=== PATIENT | female | born 1930 | race Hispanic/Latino ===

== ENCOUNTER 2018-05-31 17:58 | Emergency (ER) | payer MEDICARE ==
[2018-05-31 18:04] VITALS: TEMP 97.4
[2018-05-31] MEDS ORDERED: Sodium Chloride 0.9% 1,000 ML IV STA (19:09)
[2018-05-31 19:34] LABS: VENOUS BLOOD GAS BASE EXCESS 4.7 mmol/L (0.0-2.0); VENOUS BLOOD GAS PCO2 58 mmHg (40-60); VENOUS BLOOD GAS PO2 25 mm/Hg (30-55); VENOUS BLOOD PH 7.35 (7.32-7.43)
[2018-05-31 19:54] LABS: BASO # 0.1 K/uL (0.0-0.2); BASO % 0.6 % (0.0-2.0); EOS % 0.3 % (0.0-4.0); HEMOGLOBIN 15.1 g/dL (12.0-16.0); LYMPH # 1.1 K/uL (1.0-4.3); LYMPH % 9.6 % (20.0-40.0); MEAN CELL VOLUME 88.5 fl (81.0-99.0); MEAN CORPUSCULAR HEMOGLOBIN 28.4 pg (27.0-31.0); MEAN CORPUSCULAR HGB CONC 32.1 g/dL (33.0-37.0); MEAN PLATELET VOLUME 10.4 fl (7.2-11.7); MONO # 0.4 K/uL (0.0-0.8); MONO % 3.4 % (0.0-10.0); NEUT # 9.7 K/uL (1.8-7.0); NEUT % 86.1 % (50.0-75.0); NRBC % 0.1 % (0.0-0.0); PLATELET COUNT 223 K/uL (130-400); RBC 5.29 Mil/uL (3.80-5.20); RED CELL DISTRIBUTION WIDTH 15.1 % (11.5-14.5); WHITE BLOOD COUNT 11.3 K/uL (4.8-10.8)
[2018-05-31 20:00] LABS: ALB/GLOB RATIO 1.4 (1.0-2.1); ALBUMIN 4.5 g/dL (3.5-5.0); BLOOD UREA NITROGEN 15 mg/dl (7-17); GFR NON-AFRICAN AMERICAN > 60
[2018-05-31 20:07] LABS: ALT/SGPT 31 U/L (9-52); AST/SGOT 61 U/L (14-36)
[2018-05-31 20:52] LABS: BANDS 3 % (0-2); LYMPHOCYTE 10 % (20-50); MONOCYTE 4 % (0-10); NEUTROPHIL 83 % (42-75); PLATELET ESTIMATE NORMAL (NORMAL); TOTAL CELLS COUNTED 100
[2018-05-31 20:53] LABS: TOXIC GRANULATION PRESENT
--- NOTE | 2018-05-31 20:59 | ED PDOC ---
HPI: Abdomen Time Seen by Provider: 05/31/18 18:31 Chief Complaint (Nursing): GI Problem Chief Complaint (Provider): High Blood Pressure History Per: Patient History/Exam Limitations: no limitations Onset/Duration Of Symptoms: Hrs Additional Complaint(s): 88 y/o female with history of HTN presents to the ED due to high blood pressure. Patient reports that she had an episode of high blood pressure after an episode of vomiting. Patient states that she took all her medications this morning and in the afternoon she had x2 episodes of abdominal pain and vomiting and states she was unable to eat anything. Later, in the evening, her appetite returned and she ate 20 [place] olives. Patient noticed that she felt shaky so she checked her blood pressure at home which was 220 systolic so her daughter made her come here. Denies discomfort on arrival to ED denies dizziness, nausea, or other illness. Past Medical History Reviewed: Historical Data, Nursing Documentation, Vital Signs Vital Signs: Last Vital Signs Temp 97.4 F L 05/31/18 18:01 Pulse 66 05/31/18 19:01 Resp 19 05/31/18 19:01 BP 188/83 H 05/31/18 19:01 Pulse Ox 98 05/31/18 19:01 - Medical History PMH: HTN - Surgical History Surgical History: Cholecystectomy - Family History Family History: States: Unknown Family Hx - Allergies Allergies/Adverse Reactions: Allergies Allergy/AdvReac Type Severity Reaction Status Date / Time aspirin Allergy REDNESS Verified 05/31/18 18:05 codeine Allergy REDNESS Verified 05/31/18 18:05 moxifloxacin [From Avelox] Allergy REDNESS Verified 05/31/18 18:05 Penicillins Allergy REDNESS Verified 05/31/18 18:05 Review of Systems ROS Statement: Except As Marked, All Systems Reviewed And Found Negative Gastrointestinal: Positive for: Nausea, Vomiting, Abdominal Pain Physical Exam - Reviewed Nursing Documentation Reviewed: Yes Vital Signs Reviewed: Yes - Physical Exam Appears: Positive for: No Acute Distress (comfortable lying on stretcher) Head Exam: Positive for: ATRAUMATIC, NORMOCEPHALIC Skin: Positive for: Normal Color, Warm, DRY Cardiovascular/Chest: Positive for: Regular Rate, Rhythm. Negative for: Murmur Respiratory: Positive for: Normal Breath Sounds. Negative for: Crackles, Rales, Rhonchi, Wheezing Gastrointestinal/Abdominal: Positive for: Normal Exam, Soft. Negative for: Tenderness Extremity: Positive for: Normal ROM (full ROM of all 4 extremities). Negative for: Pedal Edema, Deformity Neurologic/Psych: Positive for: Alert, Oriented. Negative for: Motor/Sensory Deficits - Laboratory Results Result Diagrams: 05/31/18 19:10 05/31/18 19:10 - ECG O2 Sat by Pulse Oximetry: 98 (RA) Pulse Ox Interpretation: Normal Medical Decision Making Medical Decision Making: Time: Initial Impression: workup for nausea and vomiting r/o dehydration r/o cardiac damaged HTN Initial Plan: * Labs * CXR * IV Fluids * Zofran * Reassess patient Scribe Attestation: Documented by Alexys Perera acting as a scribe for Padma Maria MD. Provider Scribe Attestation: All medical record entries made by the Scribe were at my direction and pers onally dictated by me. I have reviewed the chart and agree that the record accurately reflects my personal performance of the history, physical exam, medical decision making, and the department course for this patient. I have also personally directed, reviewed, and agree with the discharge instructions and disposition. 22:00 Pt with improved BP and remains asymptomatic. Pt encouraged to follow up with primary doctor as medications may need to be adjusted. Return parameters discus sed with the patient and her daughter. Disposition - Clinical Impression Clinical Impression: Hypertension - Disposition Disposition: Routine/Home Disposition Time: 22:02 Condition: IMPROVED Additional Instructions: Avoid foods that are high in salt. Continue to take medications as prescribed by the primary medical doctor. Follow up with your primary doctor for better control of blood pressure. Return to the emergency department if symptoms worsen or if new symptoms develop. Instructions: High Blood Pressure (DC), Low Salt Diet Forms: [employer] (Romanian) Print Language: MAORI
[2018-05-31 21:30] VITALS: RESP 17
[2018-05-31 21:46] LABS: URINE BILIRUBIN NEGATIVE (NEGATIVE); URINE BLOOD NEGATIVE (NEGATIVE); URINE CLARITY CLEAR (Clear); URINE COLOR STRAW (YELLOW); URINE GLUCOSE (UA) NEG (Normal); URINE LEUKOCYTE ESTERASE NEG Leu/uL (Negative); URINE PROTEIN 30 mg/dL (NEGATIVE); URINE UROBILINOGEN 0.2-1.0 mg/dL (0.2-1.0)
[2018-05-31 23:29] VITALS: BP 167/81; PULSE 78
--- NOTE | 2018-06-01 09:32 | CARD ---
APPROVED REPORT Date of service: 05/31/2018 EKG Measurement Heart [id number] <Conclusion> Normal sinus rhythm Normal ECG
--- NOTE | 2018-06-01 12:26 | RAD ---
Date of service: 05/31/2018 HISTORY: possible admission COMPARISON: 06/23/2011. FINDINGS: LUNGS: Questionable nodule right upper lobe 5 mm. The finding is marked on the study for review. Follow-up conventional chest x-ray on on elective basis. PLEURA: No significant pleural effusion identified, no pneumothorax apparent. CARDIOVASCULAR: Atherosclerotic calcifications identified primarily aortic arch. No radiographic findings to suggest acute or significant cardiovascular disease. OSSEOUS STRUCTURES: No significant abnormalities. VISUALIZED UPPER ABDOMEN: Normal. OTHER FINDINGS: None. IMPRESSION: Questionable 5 mm nodule right upper lobe/apex. Elective follow-up conventional two-view chest advised.
[2018-06-06 06:13] VITALS: O2SAT 98
== END 2018-05-31 23:20 | disposition home or self-care (01) ==
LOC: H.ER 17:58
DX: I10 Essential (primary) hypertension (principal)
CPT/HCPCS: 71045; 80053; 81003; 82803; 84484; 85025; 87804; 93005; 96360; 99284; J7030